=== PATIENT | female | born 1990 | race African-American/Black ===

== ENCOUNTER 2018-01-15 20:21 | Emergency (ER) | payer OTHER ==
[~2018-01-15] VITALS: Ht 160 cm; Wt 56.7 kg
[~2018-01-15 20:21] MED LIST: ACETAMINOPHEN325 M1 PO; CIPRO500 MG PO; CLEOCIN HCL150 MG PO; DIFLUCAN150 MG PO; FLAGYL500 MG PO; GARAMYCIN5 M1 OP; HUMALOG100 UNIT/1; HUMALOG100 UNIT/1 SUBQ; HUMULIN N100 UNIT/1 SUBQ; HUMULINR100 SUBQ; LASIX 20 MG TAB20 MG PO; LEVEMIR SUBQ; LEVEMIR100 UNIT/1 SUBQ; LISINOPRIL-HCT1 EAC1; LISINOPRIL-HCT1 EAC1 PO; LISINOPRIL20 MG PO; LISINOPRIL5 MG PO; NORCO 5-325 TA1 EACH PO; NOVOLOG100 UNIT/1; NOVOLOG100 UNIT/1 SUBQ; ONDANSETRON HCL4 M2 PO; POTASSIUM20 PO; PRAVACHOL20 MG PO; TORADOL 10 MG T10 MG PO; VICODIN 5-5001 EACH PO; ZESTORETIC 20-1 EAC3 PO; ZOFRAN 4 MG ORAL4 M1 DIS
[2018-01-15 21:17] LABS: URINE BILIRUBIN NEGATIVE (Negative); URINE BLOOD 2+ (Negative); URINE CLARITY CLEAR; URINE COLOR YELLOW; URINE GLUCOSE-RANDOM* 1+ (Negative); URINE KETONES NEGATIVE (Negative); URINE LEUKOCYTES NEGATIVE (Negative); URINE NITRITE NEGATIVE (Negative); URINE PROTEIN (DIPSTICK) 2+ (Negative); URINE UROBILINOGEN 0.2 E.U./dl (0.2-1.0)
[2018-01-15 21:25] LABS: ABSOLUTE NEUTROPHILS 5.2 thou/uL (1.4-8.2); BASOPHILS 1.5 % (0.0-2.0); EOSINOPHILS 1.6 % (0.0-3.0); HEMATOCRIT 30.3 % (37.0-47.0); LYMPHOCYTES 26.6 % (24.0-44.0); MCH 28.4 pg (26.0-34.0); MCV 86.3 fL (80.0-100.0); PLATELET COUNT 339 thou/uL (150-400); POLYS 64.3 % (36.0-66.0); RBC 3.51 mil/uL (4.20-5.00); RDW 13.6 % (10.5-14.5); WBC 8.1 thou/uL (4.0-11.0)
[2018-01-15 21:30] LABS: BACTERIA 1-9 Few /HPF (None Seen); CASTS None Seen /LPF (None Seen); CRYSTALS None Seen /LPF (None Seen); SQUAMOUS 0-3 Few /LPF (0-3); URINE RBC 0-2 Rare /HPF (0-2); URINE WBC None Seen /HPF (0-5)
[2018-01-15 21:34] LABS: ANION GAP 10 mmol/L (7-16); BUN 32 mg/dL (7-18); CALCIUM 8.8 mg/dL (8.5-10.1); CHLORIDE 105 mmol/L (98-107); CO2 23 mmol/L (21-32); CREATININE 2.8 mg/dL (0.6-1.0); GLUCOSE 131 mg/dL (74-106); POTASSIUM 3.8 mmol/L (3.5-5.1); SODIUM 138 mmol/L (136-145)
[2018-01-15 21:43] LABS: ALBUMIN 2.5 g/dL (3.4-5.0); MAGNESIUM 2.1 mg/dL (1.8-2.4); SGOT 20 U/L (15-37); SGPT 32 U/L (30-65); TOTAL BILIRUBIN 0.1 mg/dL (<0.1-1.0); TOTAL PROTEIN 7.3 g/dL (6.4-8.2); TROPONIN-I <0.06 ng/mL (<0.06)
[2018-01-16] MEDS ORDERED: BUTALB-APAP-CA1 EACH PO (00:20)
== END 2018-01-16 00:40 | disposition still patient (30) ==
LOC: ER 20:21
PROVIDERS: Emergency Medicine
DX: E11.22 Type 2 diabetes mellitus with diabetic chronic kidney disease (principal); N18.9 Chronic kidney disease, unspecified; R51 Headache; D64.9 Anemia, unspecified; R42 Dizziness and giddiness; R00.0 Tachycardia, unspecified; I12.9 Hypertensive chronic kidney disease with stage 1 through stage 4 chronic kidney disease, or unspecified chronic kidney disease; Z79.4 Long term (current) use of insulin

== ENCOUNTER 2019-07-05 13:04 | Inpatient (IN) | payer OTHER ==
[2019-07-05] VITALS (13 sets, daily range): BP systolic 117–149; BP diastolic 73–98
[~2019-07-05] VITALS: Ht 157.5 cm; Wt 53.5 kg
[~2019-07-05 13:04] MED LIST changes: +BUTALB-APAP-CA1 EACH PO; +COREG6.25 MG PO; +COZAAR 25 MG TA25 M1 PO; +FIRVANQ50 MG/1 ML PO; +NORVASC10 MG PO; +statin PO
[2019-07-05 13:32] LABS: ABSOLUTE NEUTROPHILS 7.8 thou/uL (1.4-8.2); BASOPHILS 0.7 % (0.0-2.0); EOSINOPHILS 0.3 % (0.0-3.0); HEMATOCRIT 35.6 % (37.0-47.0); HEMOGLOBIN 10.9 gm/dL (12.0-15.0); LYMPHOCYTES 4.9 % (24.0-44.0); MCH 31.4 pg (26.0-34.0); MCHC 30.7 g/dL (28.0-37.0); MCV 102.2 fL (80.0-100.0); MONOCYTES 1.5 % (1.0-8.0); PLATELET COUNT 383 thou/uL (150-400); POLYS 92.6 % (36.0-66.0); RBC 3.48 mil/uL (4.20-5.00); RDW 14.3 % (10.5-14.5); WBC 8.4 thou/uL (4.0-11.0)
[2019-07-05 13:33] LABS: URINE BILIRUBIN NEGATIVE (Negative); URINE BLOOD 1+ (Negative); URINE CLARITY CLEAR; URINE COLOR YELLOW; URINE GLUCOSE-RANDOM* 3+ (Negative); URINE KETONES 2+ (Negative); URINE LEUKOCYTES-REFLEX NEGATIVE (Negative); URINE NITRITE-REFLEX NEGATIVE (Negative); URINE PROTEIN (DIPSTICK) 2+ (Negative); URINE UROBILINOGEN 0.2 E.U./dl (0.2-1.0)
[2019-07-05 13:38] LABS: BE(vivo) -19.5 mmol/L (-2 to +3); HCO3 8.9 mmol/L (22.0-26.0); PCO2 VENOUS 29.5 mmHg (41.0-51.0); PO2 VENOUS 50.8 mmHg (35.0-45.0)
[2019-07-05 13:43] LABS: CASTS None Seen /LPF (None Seen); CRYSTALS None Seen /LPF (None Seen); SQUAMOUS 0-3 Few /LPF (0-3)
[2019-07-05 13:44] LABS: BACTERIA-REFLEX 1-9 Few /HPF (None Seen); URINE RBC 0-2 Rare /HPF (0-2); URINE WBC-REFLEX None Seen /HPF (0-5)
[2019-07-05 13:51] LABS: ALBUMIN 2.8 g/dL (3.4-5.0); CALCIUM 6.9 mg/dL (8.5-10.1); CREATININE 7.7 mg/dL (0.6-1.0); MAGNESIUM 3.3 mg/dL (1.8-2.4); PHOSPHORUS 8.4 mg/dL (2.5-4.9); POTASSIUM 5.7 mmol/L (3.5-5.1); TOTAL BILIRUBIN 0.5 mg/dL (<0.1-1.0); TOTAL PROTEIN 7.5 g/dL (6.4-8.2)
[2019-07-05 16:06] LABS: ALBUMIN 2.6 g/dL (3.4-5.0); CALCIUM 6.6 mg/dL (8.5-10.1); CREATININE 7.5 mg/dL (0.6-1.0); PHOSPHORUS 8.2 mg/dL (2.5-4.9); POTASSIUM 5.3 mmol/L (3.5-5.1)
--- NOTE | 2019-07-05 18:13 | NUR ---
DR. WRIGHT CALLED. RE FLUID ORDERS AND GENERAL UPDATE. REPORTED DID NOT GIVE 8 U BOLUS. I TURNED GTT UP TO 15U/HR. STATES THAT WAS OK. DARLIN REPORTED D51/2 NS HANGING AT 250 /HR.
[2019-07-05 18:42] LABS: ABSOLUTE NEUTROPHILS 7.7 thou/uL (1.4-8.2); BASOPHILS 0.5 % (0.0-2.0); HEMATOCRIT 33.9 % (37.0-47.0); HEMOGLOBIN 10.6 gm/dL (12.0-15.0); LYMPHOCYTES 5.6 % (24.0-44.0); MCH 31.6 pg (26.0-34.0); MCHC 31.2 g/dL (28.0-37.0); MCV 101.3 fL (80.0-100.0); MONOCYTES 1.6 % (1.0-8.0); PLATELET COUNT 345 thou/uL (150-400); POLYS 92.3 % (36.0-66.0); RBC 3.34 mil/uL (4.20-5.00); RDW 14.4 % (10.5-14.5); WBC 8.3 thou/uL (4.0-11.0)
--- NOTE | 2019-07-05 19:36 | NUR ---
END OF SHIFT NOTE. PT ADMIT ICU FOR DKA, ENDOCRONOLGIST CALLED FOR ORDERS. .45NS INFUSING AT 250CC/HR. INSULIN GTT TITRATING TO LOWER BLOOD SUGAR 50-100 PER HOUR.
[2019-07-05 21:45] LABS: ALBUMIN 2.4 g/dL (3.4-5.0); CALCIUM 7.2 mg/dL (8.5-10.1); CREATININE 7.5 mg/dL (0.6-1.0); PHOSPHORUS 7.3 mg/dL (2.5-4.9)
[2019-07-05 21:49] LABS: POTASSIUM 4.1 mmol/L (3.5-5.1)
[2019-07-06] VITALS (20 sets, daily range): BP systolic 103–160; BP diastolic 64–105
[2019-07-06 01:58] LABS: ALBUMIN 2.2 g/dL (3.4-5.0); CALCIUM 6.8 mg/dL (8.5-10.1); MAGNESIUM 2.7 mg/dL (1.8-2.4); POTASSIUM 4.7 mmol/L (3.5-5.1)
--- NOTE | 2019-07-06 06:00 | NUR ---
PT AWKAE AND ALERT SLEPT MOST OF NIGHT. 1500 CC U0 THIS SHIFT. DENIES PAIN NOR DISCOMFORT. LUNG CLEAR. REMAINS ON DKA PROTOCAL. INSULIN GTT OFF AT PRESENT. WILL CONT TO MONITOR, SEE INSULIN FLOW SHEET FOR ACCUCHECKS AWAITING TO DRAW AM LAB LAST ANION GAP 16. PROGRESSING TOWARD GOALS.
[2019-07-06 09:05] LABS: ALBUMIN 2.3 g/dL (3.4-5.0); CALCIUM 6.8 mg/dL (8.5-10.1); CREATININE 6.9 mg/dL (0.6-1.0); PHOSPHORUS 6.1 mg/dL (2.5-4.9); POTASSIUM 3.8 mmol/L (3.5-5.1)
--- NOTE | 2019-07-06 10:49 | NUR ---
chart review, cm spoke with pt via phone call. intro to cm and transition of care. pt answered question with yes and no responses to most of conversation with pt via phone call. " live wit mom, independent when feeling ok. dme supplies for DM, no primary care dr. i have diabetic dr davila and kidney dr meyer, they at [facility]. don't need primary dr"/charlise. no concerns or question during. will cont following as needed for dc needs.
[2019-07-06 13:42] LABS: ALBUMIN 2.3 g/dL (3.4-5.0); CALCIUM 7.3 mg/dL (8.5-10.1); CREATININE 6.4 mg/dL (0.6-1.0); PHOSPHORUS 5.2 mg/dL (2.5-4.9); POTASSIUM 3.9 mmol/L (3.5-5.1)
[2019-07-06 17:24] LABS: ALBUMIN 2.1 g/dL (3.4-5.0); CALCIUM 7.2 mg/dL (8.5-10.1); CREATININE 6.4 mg/dL (0.6-1.0); POTASSIUM 4.2 mmol/L (3.5-5.1)
--- NOTE | 2019-07-06 18:37 | NUR ---
ASSUMED CARE PT APPROX 1030. ASSESSMENTS CHARTED.MEDS GIVEN PER MAY. PT ALERT AND ORIENTED.VSS. DENIES PAIN. O2 SATS WNL ON ROOM AIR. DENIES CP/SOB. INSULIN GTT DC'D- PT NOW ON SQ INSULIN. PT TOLERATING DIET. URINE OUTPUT ADEQUATE. SR-ST MONITOR. PT TRANSFER ORDERS FOR 3W. REPORT CALLED TO NURSE. PT LEFT UNIT AT APPROX 1830 WITH ALL BELONGINGS.
[2019-07-07 00:07] LABS: GLYCOHEMOGLOBIN (HGB A1C) 13.9 % (4.8-5.6)
[2019-07-07 04:10] VITALS: BP 136/90
--- NOTE | 2019-07-07 04:49 | NUR ---
Assumed pt care at 1900. Pt transferred by nurse from 3W @2215 via bed. A/OX4, VSS. Denies pain on assessment. Up ad radha,encouraged to call for help as needed. Continent of B&B, voiding adequately. HS snack provided after accucheck 118. SCDs in place, resting w/o distress noted call light/personal items within reach. Will continue to monitor pt.
[2019-07-07 06:02] LABS: ABSOLUTE NEUTROPHILS 2.8 thou/uL (1.4-8.2); BASOPHILS 0.9 % (0.0-2.0); EOSINOPHILS 2.1 % (0.0-3.0); HEMATOCRIT 27.7 % (37.0-47.0); LYMPHOCYTES 37.5 % (24.0-44.0); MCH 31.3 pg (26.0-34.0); MCHC 32.6 g/dL (28.0-37.0); MONOCYTES 3.4 % (1.0-8.0); POLYS 56.1 % (36.0-66.0); RBC 2.89 mil/uL (4.20-5.00); RDW 13.8 % (10.5-14.5)
[2019-07-07 06:03] LABS: PLATELET COUNT 256 thou/uL (150-400)
[2019-07-07 06:13] LABS: ALBUMIN 2.2 g/dL (3.4-5.0); CALCIUM 7.1 mg/dL (8.5-10.1); CREATININE 6.5 mg/dL (0.6-1.0); PHOSPHORUS 5.8 mg/dL (2.5-4.9); POTASSIUM 3.9 mmol/L (3.5-5.1)
[2019-07-07 06:50] LABS: CALCIUM 7.4 mg/dL (8.5-10.1); CREATININE 6.5 mg/dL (0.6-1.0); PHOSPHORUS 5.9 mg/dL (2.5-4.9)
[2019-07-07 07:25] VITALS: BP 149/93
--- NOTE | 2019-07-07 11:17 | HC ---
[facility] [place] [address] CONSULTATION Name: LINNEA BUSH Room #: 440-P ADM IN M.R.#: [id number] Admission: 07/05/19 Attend Phys: Merline Casey MD Discharge: Date of : 91 Report #: [id number] THIS REPORT FOR: cc: FILI - Family physician unknown FILI - Family physician unknown Cheryl Barrera MD ~ CC: FILI unknown Merline Casey DATE OF SERVICE: 07/06/2019 ENDOCRINE CONSULTATION NOTE CONSULTING PHYSICIAN: Dr. Casey. REASON FOR CONSULTATION: DKA, uncontrolled type 1 diabetes mellitus. HISTORY OF PRESENT ILLNESS: This is a 28-year-old female patient whose medical background is remarkable for type 1 diabetes mellitus diagnosed at the age of 5. The patient's course with diabetes has been complicated by chronic kidney disease, end-stage renal disease, whereby she is being planned for an AV fistula placement next month. She is also hypertensive. The patient has been maintained on a Tandem insulin pump utilizing Humalog insulin since November of last year. She is under the management of the Endocrinology Department at [facility]. When questioned about her specific insulin pump settings, the patient was unable to provide accurate answers and noted that she believes she might be using a carb ratio of 15 and sensitivity factor of 15 with a basal rate of 0.6. She vaguely recalls that her most recent hemoglobin A1c was over 12, but does not remember exactly when that was. She suffers end-stage renal disease, but not retinopathy or neuropathy and without a history of heart disease as per her report. The patient is also hypertensive and is maintained on carvedilol and amlodipine. The patient notes that earlier on the day of her admission yesterday, she developed a seizure due to severe hypoglycemia that she believes went as low as 20 mg/dL. Following that, the patient started having issues with uncontrollable high blood sugars and came in to the ER where she was found to have blood sugar over 1000 mg/dL. Subsequently, she was admitted to the ICU for further treatment and was managed with intravenous insulin therapy and intravenous fluids as per [facility]'s protocol. REVIEW OF SYSTEMS: CONSTITUTIONAL: Fatigue, tiredness, but not fever or chills. HEENT: Negative for sore throat, sinus pain, ear drainage. [facility] [address] [place] [address] CONSULTATION Name: LINNEA BUSH Room #: 440-P [facility] IN M.R.#: [id number] Admission: 07/05/19 Attend Phys: Merline Casey MD Discharge: Date of : 91 Report #: [id number] PULMONARY: No major issues with shortness of breath, cough or hemoptysis. CARDIAC: Intermittent palpitations, but not syncope or presyncope or chest pain. GASTROINTESTINAL: Abdominal discomfort, nausea, but no vomiting. NEUROLOGY: Lightheadedness, dizziness, seizure activity in the setting of severe hypoglycemia. PSYCHIATRIC: Negative for delusions, hallucinations. SKIN: Negative for ulceration, rash or other major abnormalities. Otherwise, review of systems noncontributory other than those mentioned in HPI. PAST MEDICAL HISTORY: 1. Type 1 diabetes mellitus as noted above. 2. Chronic kidney disease, end-stage renal disease, being planned for AV fistula next month. 3. Hypertension. OUTPATIENT MEDICATIONS: Include: 1. Humalog insulin via insulin pump. 2. Carvedilol 6.25 mg b.i.d. 3. Amlodipine 10 mg daily. ALLERGIES: The patient has no known drug allergies. FAMILY HISTORY: Noncontributory. SOCIAL HISTORY: The patient is single, does not have children. 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 Denies use of tobacco, alcohol or illicit drugs. PHYSICAL EXAMINATION: GENERAL: Pleasant female patient who is not in apparent pain or distress. VITAL SIGNS: Blood pressure is 133/83 mmHg, heart rate is 102 beats per minute, respirations 12 per minute, temperature 36.7 degrees. PSYCH: The patient is lying in bed comfortably, not in pain or distress. HEENT: Anicteric sclerae. Intact extraocular motions. NECK: Supple, without JVD, carotid bruits or lymphadenopathy. I do not appreciate thyromegaly. CHEST: Clear to auscultation with good air entry bilaterally with few scattered rales. HEART: Regular rate and rhythm without murmurs or gallops. ABDOMEN: Soft, lax. No guarding. Active bowel sounds. EXTREMITIES: Lower extremity exam is negative for ankle edema, skin breaks, ulcerations. Pedal pulses are appreciated. NEUROLOGIC: Awake, alert and oriented to time, place and person. The remainder of her examination is largely nonfocal. PSYCHIATRIC: Pleasant, interactive. Normal mood and affect. [address] [address] CONSULTATION Name: ELEAZARKATHRINEJONATHAN DOMINGUEZ Room #: 440-P [facility] IN M.R.#: [id number] Admission: 07/05/19 Attend Phys: Merline Casey MD Discharge: Date of : 89 Report #: [id number] LABORATORY RESULTS: Blood glucose on arrival was over 1000 and quickly dropped to below 180 mg/dL since then. Sodium 132, potassium 3.8, chloride 99, CO2 16, anion gap 17. On arrival this was at 30. BUN 104, creatinine 6.9, glucose 179. Lipase 102, total bilirubin 0.5, calcium 6.8, phosphorus 6.1, magnesium 2.6, alkaline phosphatase 141, ALT 52, albumin 2.3, eGFR 9. Lactic acid 2.6. White blood count 8.3, hemoglobin 10.6, hematocrit 33.9, platelets 345. Hemoglobin A1c in October 2012 was 18.3. She had 3 values done in 2011, all ranging 13.6 to 16.3. ASSESSMENT AND PLAN: 1. Diabetic ketoacidosis. The patient presented in diabetic ketoacidosis. As reflected by her recorded blood glucose values, metabolic abnormalities and she has done rather well with the instated management with intravenous insulin, intravenous fluid resuscitation. She essentially reversed her issues with hyperglycemia and metabolic abnormalities. The patient will be switched from intravenous insulin to subcutaneous insulin therapy at this point. 2. Type 1 diabetes mellitus. The patient has a historic outlook of severe hyperglycemia and poor control. She has been on insulin pump therapy via Tandem insulin pump for the past several months and does not seem to have achieved better control utilizing this method. She was unable to relate the specifics of her insulin pump settings. I have discussed the need to achieve and maintain adequate glycemic control so as to avoid diabetic complications in the future. Also, I expressed my concern about the outlook of severe hypoglycemia, which the patient says occasionally happens. Based on her insulin needs which are now running at about 1-2 units per hour, I will switch the patient over to a combination of Lantus insulin 15 units daily in addition to Humalog supplemental scale at a low intensity as well as Humalog scheduled insulin meal coverage at 5 units per meal. Blood glucose monitoring will commence a.c. and at bedtime. Also, I will request a hemoglobin A1c to get a more current assessment of her overall level of control. As per my discussion with the patient, I will not attempt to resume insulin pump therapy during this hospitalization given the poor outlook that she has had over the past months and I would likely send her home on a basal bolus insulin regimen and have her followup with her transmission tester at [facility] for further coordination of care and to determine whether she is appropriate to maintain an insulin pump therapy or not and whether her insulin pump settings need to be revised or not. 3. Hypertension. The patient's level of blood pressure control is adequate, she is to continue the same regimen. 4. End-stage renal disease. The patient has end-stage renal disease and is being planned for an AV fistula placement and hemodialysis as of next month. She has chronic Nephrology care at [facility]. I briefly discussed the option of simultaneous kidney pancreas transplant with the patient and advised her to consider this possibility in the future. [address] [address] CONSULTATION Name: ELEAZARLINNEA Room #: 440-P [facility] IN M.R.#: [id number] Admission: 07/05/19 Attend Phys: Merline Casey MD Discharge: Date of : 91 Report #: [id number] I certainly appreciate this consultation by Dr. Casey. <ELECTRONICALLY SIGNED> By: Cheryl Barrera MD 07/07/19 1117 1116 1230 Cheryl Barrera MD /nt
[2019-07-07] MEDS ORDERED: HUMALOG100 UNIT/1 SUBQ (11:45)
[2019-07-07] MEDS ORDERED: SODIUM BICARBO650 M3 PO (11:45)
[2019-07-07] MEDS ORDERED: CALCIUM ACETAT667 MG PO (11:45)
[2019-07-07] MEDS ORDERED: LANTUS SUBQ (11:45)
[2019-07-07 13:34] VITALS: BP 149/93
--- NOTE | 2019-07-07 15:31 | NUR ---
Assumed care of pt at 0700. Pt states she feels better today. Renal ultrasound completed. Up ad radha. Denies pain. Discharging home.
--- NOTE | 2019-07-08 07:11 | HC ---
[facility] [place] [address] CONSULTATION Name: LINNEA BUSH Room #: 440-P [facility] IN M.R.#: [id number] Admission: 07/05/19 Attend Phys: Merline Casey MD Discharge: 07/07/19 Date of : 91 Report #: [id number] THIS REPORT FOR: cc: FILI - Family physician unknown FILI - Family physician unknown Laurie Medellin MD ~ CC: FILI unknown Merline Casey DATE OF SERVICE: 07/06/2019 REASON FOR CONSULTATION: End-stage renal disease. REASON FOR PRESENTATION: Elevated blood sugar. HISTORY OF PRESENT ILLNESS: A 28-year-old who is known to have end-stage renal disease and is followed by [facility] for her chronic kidney, end-stage renal disease. She was supposed to have an AV fistula placed next month to initiate hemodialysis. She has been diabetic since she was 5 years old with all diabetic complications. She presented yesterday because of high blood sugar. The patient has had some GI illness in the last couple of days. She denies chest pain, no shortness of breath. On presentation, she was found to have an elevated creatinine. She was also in hyperkalemia. I was asked to assist with the management of her end-stage renal disease. PAST MEDICAL HISTORY: 1. Long-standing diabetes mellitus with all of its complications including diabetic nephropathy, neuropathy, retinopathy. 2. Hypertension. 3. End-stage renal disease. 4. Hyperlipidemia. MEDICATIONS: 1. Carvedilol. 2. Amlodipine. 3. Levemir. 4. NovoLog insulin. ALLERGIES: None. FAMILY HISTORY: Significant for diabetes mellitus. SOCIAL HISTORY: Denies drug or alcohol abuse. REVIEW OF SYSTEMS: GENERAL: No fever or chills. [facility] [address] [place] [address] CONSULTATION Name: LINNEA BUSH Room #: 440-P [facility] IN .R.#: [id number] Admission: 07/05/19 Attend Phys: Merline Casey MD Discharge: 07/07/19 Date of : 91 Report #: [id number] CARDIOVASCULAR: No chest pain or palpitation. PULMONARY: No cough or hemoptysis. GASTROINTESTINAL: As per the history of present illness. GENITOURINARY: No frequency, no urgency. MUSCULOSKELETAL: Occasional back pain. SKIN: No rash or ulcerations. PHYSICAL EXAMINATION: VITAL SIGNS: Blood pressure was 133/83, pulse rate was 100. Respiratory rate was 12. HEAD AND NECK: No jugular venous distention, no bruit, no thyromegaly. CHEST: Clear to auscultation bilaterally. CARDIOVASCULAR: No rub detected. ABDOMEN: Soft, nontender. EXTREMITIES: Lower extremities, no edema. NEUROLOGICAL: She is alert, oriented with no apparent distress. LABORATORY VALUES: Reviewed. Sodium was 132, potassium was 4.7, BUN was 109, creatinine was 7, calcium of 6.8, phosphorus was 7. Magnesium was 2.7. ASSESSMENT AND PLAN: 1. End-stage renal disease. 2. Uncontrolled diabetes mellitus. 3. Management of her diabetic ketoacidosis as per the primary team. 4. From the renal perspective, she is known to have end-stage renal disease. She is supposed to see a surgeon to place an AV fistula down the road when this COVID virus pandemic resolves. 5. Continue to watch electrolytes, potassium has improved. 6. Monitor volume status. 7. Avoid nephrotoxins. 8. Basic chronic kidney disease workup. <ELECTRONICALLY SIGNED> By: Laurie Medellin MD 07/08/19 0711 0731 0812 Laurie Medellin MD /nt
== END 2019-07-07 15:37 | disposition home or self-care (01) | DRG 637 ==
LOC: ER 13:04 → EROBS 15:58 → ICU 15:58 → 3W 07-06 17:44 → 4S 07-06 23:14
PROVIDERS: Emergency Medicine Emergency Medical Services; Hospitalist; Internal Medicine; ADMIT Internal Medicine
PROC: 5A09357 Assistance with Respiratory Ventilation, Less than 24 Consecutive Hours, Continuous Positive Airway Pressure (ICD-10-PCS; principal; 2019-07-05)
DX: E10.10 Type 1 diabetes mellitus with ketoacidosis without coma (principal); E43 Unspecified severe protein-calorie malnutrition; N18.6 End stage renal disease; N17.9 Acute kidney failure, unspecified; I12.0 Hypertensive chronic kidney disease with stage 5 chronic kidney disease or end stage renal disease; E87.1 Hypo-osmolality and hyponatremia; E86.0 Dehydration; E83.39 Other disorders of phosphorus metabolism; E83.41 Hypermagnesemia; E87.5 Hyperkalemia; E78.00 Pure hypercholesterolemia, unspecified; D63.1 Anemia in chronic kidney disease; E78.5 Hyperlipidemia, unspecified; K52.9 Noninfective gastroenteritis and colitis, unspecified; Z87.440 Personal history of urinary (tract) infections; Z79.899 Other long term (current) drug therapy; Z83.3 Family history of diabetes mellitus; Z87.891 Personal history of nicotine dependence; Z68.21 Body mass index [BMI] 21.0-21.9, adult
CPT/HCPCS: 10078; 10102

== ENCOUNTER 2019-07-19 04:58 | Observation (INO) | payer OTHER ==
[2019-07-19] VITALS (19 sets, daily range): BP systolic 112–173; BP diastolic 71–116
[~2019-07-19] VITALS: Ht 152.4 cm; Wt 51.3 kg
[~2019-07-19 04:58] MED LIST changes: +CALCIUM ACETAT667 MG PO; +LANTUS SUBQ; +SODIUM BICARBO650 M3 PO
[2019-07-19 05:24] LABS: ABSOLUTE NEUTROPHILS 3.7 thou/uL (1.4-8.2); BASOPHILS 0.8 % (0.0-2.0); HEMATOCRIT 29.3 % (37.0-47.0); HEMOGLOBIN 9.7 gm/dL (12.0-15.0); LYMPHOCYTES 20.2 % (24.0-44.0); MCH 31.5 pg (26.0-34.0); MCHC 33.2 g/dL (28.0-37.0); MCV 94.9 fL (80.0-100.0); MONOCYTES 6.3 % (1.0-8.0); PLATELET COUNT 351 thou/uL (150-400); POLYS 70.7 % (36.0-66.0); RBC 3.09 mil/uL (4.20-5.00); RDW 13.5 % (10.5-14.5); WBC 5.2 thou/uL (4.0-11.0)
[2019-07-19 05:36] LABS: CALCIUM 6.2 mg/dL (8.5-10.1); CREATININE 5.9 mg/dL (0.6-1.0); POTASSIUM 3.3 mmol/L (3.5-5.1)
[2019-07-19 05:42] LABS: ALBUMIN 2.7 g/dL (3.4-5.0); TOTAL BILIRUBIN 0.2 mg/dL (<0.1-1.0); TOTAL PROTEIN 7.6 g/dL (6.4-8.2)
[2019-07-19 05:46] LABS: URINE BILIRUBIN NEGATIVE (Negative); URINE BLOOD TRACE (Negative); URINE CLARITY CLEAR; URINE COLOR YELLOW; URINE GLUCOSE-RANDOM* 2+ (Negative); URINE KETONES NEGATIVE (Negative); URINE LEUKOCYTES-REFLEX TRACE (Negative); URINE NITRITE-REFLEX NEGATIVE (Negative); URINE PROTEIN (DIPSTICK) 3+ (Negative); URINE UROBILINOGEN 0.2 E.U./dl (0.2-1.0)
[2019-07-19 06:02] LABS: BACTERIA-REFLEX 1-9 Few /HPF (None Seen); CASTS None Seen /LPF (None Seen); CRYSTALS None Seen /LPF (None Seen); MUCUS None Seen strn/LPF (None Seen); SQUAMOUS 0-3 Few /LPF (0-3); TRANSITIONAL EPITHEL CELL 0-3 Few /LPF (None Seen); URINE RBC 0-2 Rare /HPF (0-2); URINE WBC-REFLEX 6-15 Few /HPF (0-5)
--- NOTE | 2019-07-19 18:37 | NUR ---
RECIEVED PATIENT FROM ER AT 0730. AMBULATED FROM STRECTER TO ICU BED. STEADY GAIT. NO COMPLAINTS OF PAIN, NAUSEA OR DIZZINESS. BS 101. D5 RUNNING AT 50. DR. WATERS CONSULTED.
[2019-07-20] VITALS (7 sets, daily range): BP systolic 141–160; BP diastolic 84–105
[2019-07-20 05:57] LABS: ABSOLUTE NEUTROPHILS 3.3 thou/uL (1.4-8.2); BASOPHILS 0.8 % (0.0-2.0); EOSINOPHILS 1.6 % (0.0-3.0); HEMATOCRIT 27.3 % (37.0-47.0); LYMPHOCYTES 36.1 % (24.0-44.0); MCH 31.7 pg (26.0-34.0); MCHC 32.8 g/dL (28.0-37.0); MCV 96.6 fL (80.0-100.0); MONOCYTES 4.1 % (1.0-8.0); POLYS 57.4 % (36.0-66.0); RBC 2.83 mil/uL (4.20-5.00); RDW 13.5 % (10.5-14.5); WBC 5.8 thou/uL (4.0-11.0)
--- NOTE | 2019-07-20 06:00 | NUR ---
PT HAS SLEPT MOST OF NOCT. REMAINS IN SINUS TACH. DENIES PAIN NOR DISCOMFORT. WILL CONT TO MONITOR
[2019-07-20 06:15] LABS: PLATELET COUNT 276 thou/uL (150-400)
[2019-07-20 06:31] LABS: ALBUMIN 2.4 g/dL (3.4-5.0); CALCIUM 6.2 mg/dL (8.5-10.1); CREATININE 6.6 mg/dL (0.6-1.0); MAGNESIUM 2.9 mg/dL (1.8-2.4); PHOSPHORUS 7.3 mg/dL (2.5-4.9); POTASSIUM 4.4 mmol/L (3.5-5.1); TOTAL BILIRUBIN 0.2 mg/dL (<0.1-1.0); TOTAL PROTEIN 6.8 g/dL (6.4-8.2)
--- NOTE | 2019-07-20 10:33 | HC ---
[facility] [place] [address] CONSULTATION Name: LINNEA BUSH Room #: 245-P ADM IN M.R.#: [id number] Admission: 07/19/19 Attend Phys: Kirby Cobb MD Discharge: Date of : 89 Report #: [id number] THIS REPORT FOR: cc: FILI - Family physician unknown FAM - Family physician unknown Cheryl Barrera MD ~ CC: FILI unknown Kirby Cobb DATE OF SERVICE: 07/19/2019 ENDOCRINE CONSULTATION NOTE CONSULTING PHYSICIAN: Dr. Casey. REASON FOR CONSULTATION: Type 1 diabetes mellitus, hypoglycemia. HISTORY OF PRESENT ILLNESS: This is a 28-year-old female patient whose medical background is significant for type 1 diabetes mellitus diagnosed in her hearing aid consultant. I had seen the patient during a recent admission less than 2 weeks ago for the issue of DKA, which was managed at [facility]'s ICU. Following that episode and the patient's stabilization, she was placed on a regimen of Lantus insulin 15 units daily in addition to Humalog insulin 5 units with meals. This was a transition from her prior continuous insulin therapy via insulin pump as the patient's hemoglobin A1c was over 13% and she described an outlook of sustained severe hyperglycemia well over 400 mg/dL for the weeks preceding that admission. The patient states that she has done well initially following that discharge until 3 days ago when she developed severe hypoglycemic episodes requiring EMS assistance. When that happened, the patient went without Lantus injection both on Saturday and Saturday and took Humalog only once on Saturday at 5 units, but none on Saturday. She notes that her blood sugars earlier on Saturday have run into the 400 mg/dL range, but without further changes she went again to develop severe hypoglycemia, which led her to present to the ER at that point. The patient was resuscitated in the Emergency Department where she was evaluated and was found to have a blood sugar of 221 mg/dL. She was admitted to the ICU for further care and monitoring. The patient denies issues with fever, chills, nausea, vomiting or major changes to her p.o. intake. It is worth noting that the patient's background is significant for end-stage renal disease with plans to prepare for hemodialysis as well as for hypertension. [address] [address] CONSULTATION Name: LINNEA BUSH Room #: 245-P [facility] IN M.R.#: [id number] Admission: 07/19/19 Attend Phys: Kirby Cobb MD Discharge: Date of : 91 Report #: [id number] REVIEW OF SYSTEMS: CONSTITUTIONAL: Fatigue, tiredness and unresponsiveness in the setting of severe hypoglycemia, but not fever or chills. HEENT: Negative for sore throat, sinus pain, ear drainage. PULMONARY: Negative for shortness of breath, cough or hemoptysis. CARDIAC: Negative for chest pain, palpitations, syncope or presyncope. GASTROINTESTINAL: Negative for abdominal pain, major changes in bowel movement frequency, hematemesis, but noted for nausea. NEUROLOGY: Noted for tremors and altered level of consciousness associated with hypoglycemia. Negative for seizure episodes. Negative for severe frequent headaches. UROLOGY: Negative for dysuria, hematuria, or frequency. SKIN: Negative for rash, ulceration or discoloration. Otherwise, review of systems noncontributory other than those mentioned in HPI. PAST MEDICAL HISTORY: 1. Type 1 diabetes mellitus. 2. Hypertension. 3. End-stage renal disease. 4. History of colitis. 5. History of urinary tract infection. OUTPATIENT MEDICATIONS: Include: 1. Lantus insulin 15 units daily. 2. Humalog 5 units t.i.d. a.c. 3. Carvedilol 6.25 mg p.o. b.i.d. 4. Amlodipine 10 mg daily. 5. Sodium bicarbonate 650 mg t.i.d. ALLERGIES: No known drug allergies. FAMILY HISTORY: Noncontributory. SOCIAL HISTORY: The patient denies use of tobacco, alcohol or illicit drugs. PHYSICAL EXAMINATION: GENERAL: Pleasant -Citizen Of [place] female patient who is not in apparent pain or distress. VITAL SIGNS: Blood pressure is 153/105 mmHg, heart rate is 104 beats per minute, respirations 14 per minute, temperature of 36.4 degrees. CONSTITUTIONAL: The patient was sitting up in bed, seems comfortable, not in apparent distress. HEENT: Anicteric sclerae. Intact extraocular motions. NECK: Supple, without JVD, carotid bruits or lymphadenopathy. No thyromegaly. CHEST: Noted for good air entry bilaterally without wheezes or crackles. HEART: Regular rate and rhythm without murmurs or gallops. [address] [address] CONSULTATION Name: ELEAZARKATHRINEJONATHAN DOMINGUEZ Room #: 245-P [facility] IN M.R.#: [id number] Admission: 07/19/19 Attend Phys: Kirby Cobb MD Discharge: Date of : 91 Report #: [id number] ABDOMEN: Soft and lax without tenderness or organomegaly. She has active bowel sounds. EXTREMITIES: Lower extremity exam is negative for ankle edema, skin breaks, ulcerations. Pedal pulses are faint. Sensation to light touch is moderately diminished. NEUROLOGIC: Awake, alert and oriented to time, place and person. The remainder of her examination is nonfocal other than for peripheral sensory deficits. PSYCHIATRIC: Interactive. Normal mood and affect. LABORATORY DATA: On arrival, blood glucose was 89, then 85, 77, 101, and then most recently at 362 mg/dL. Sodium 136, potassium 3.3, chloride 95, CO2 of 29, anion gap 12, BUN 96, creatinine 5.9, AST 51, lipase 102, total bilirubin 0.2, direct bilirubin less than 0.1, calcium 6.2, phosphorus 5.9, magnesium 2.6, ALT 76, total protein 7.6, albumin 2.7, EGFR 10. Lactic acid 2.6. Troponin negative. White blood count 5.2, hemoglobin 9.7, hematocrit 29.3, platelets 351. Cortisol 26.3. Hemoglobin A1c on 07/06/2019 was 13.9%. ASSESSMENT AND PLAN: 1. Type 1 diabetes mellitus, uncontrolled. The patient's background is significant for uncontrolled type 1 diabetes mellitus with an outlook of severe sustained hyperglycemia as per her recorded blood glucose values, reported blood glucose values, as well as her recent hemoglobin A1c of nearly 14%. Also, the patient has had a complicated diabetic course noted for end-stage renal disease that awaits hemodialysis. When the patient was hospitalized recently for DKA, she was placed on a basal bolus regimen and switched off of her insulin pump therapy due to the obvious inefficacy of that approach at least with settings she was utilizing. The regimen of Lantus insulin and Humalog insulin was based off of her IV insulin needs. The patient did well during her hospital stay and initially afterwards until she developed recurrent, severe hypoglycemia with hardly any insulin intake for 48 hours. While her doses will be revised down aggressively, the fact remains that she does need basal bolus coverage as a type 1 diabetic, especially with a background noted above. I agree with starting the patient out cautiously at a dose of Lantus insulin 5 units daily as well as Humalog insulin 3 units with meals and modified low intensity Humalog supplemental scale to start blood glucose values over 200. I suspect that the patient's insulin needs will prove to be higher than this, but would rather start with a cautious approach and raise her insulin intake gradually. Once her insulin needs are defined and stable outlook is achieved, the patient can be considered for insulin pump therapy that would take into account of these insulin needs. 2. Hypoglycemia. Severe intractable and concerning and occurred a second time before this admission despite the lack of insulin intake for 48 hours. [address] [address] CONSULTATION Name: LINNEA BUSH Room #: 245-P [facility] IN .R.#: [id number] Admission: 07/19/19 Attend Phys: Kirby Cobb MD Discharge: Date of : 91 Report #: [id number] checked the patient's random cortisol to rule out the possibility of adrenal insufficiency as a predisposition to hypoglycemia and she did rule out by margin with a random cortisol of 26.3. The other explanation would be ineffective gluconeogenesis in the presence of end-stage renal disease and limited renal gluconeogenesis contribution as well as altered pharmacokinetics of insulin therapy in the presence of such end-stage renal disease. The patient was counseled about these facts and we agreed to have a cautious start to basal bolus insulin as noted above and to maintain monitoring in the ICU of her blood glucose every 2 hours until we ensure stability. Given the patient's significant rebound to a blood sugar of 367 mg/dL, her IV dextrose intake was suspended. Should she develop more hypoglycemia going forward, she will be managed as per the [facility] hypoglycemia protocol. 3. End-stage renal disease. 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 4. Hypertension. The patient's level of blood pressure control is marginal, I will defer active management changes in this regard to the hospital team. I certainly appreciate this consultation by Dr. Casey. <ELECTRONICALLY SIGNED> By: Cheryl Barrera MD 07/20/19 1033 1340 [id number] Cheryl Barrera MD /nt
[2019-07-20] MEDS ORDERED: LANTUS SUBQ (12:49)
[2019-07-20] MEDS ORDERED: HUMALOG100 UNIT/1 SUBQ (12:52)
--- NOTE | 2019-07-20 13:09 | NUR ---
BLOOD SUGARS STABALIZED. WILL BE DISCHARGED ON ADJUSTED DOSE OF INSULIN. VITAL SIGNS STABLE.
== END 2019-07-20 14:13 | disposition home or self-care (01) ==
LOC: ER 04:58 → EROBS 06:14 → ICU 06:14
PROVIDERS: Emergency Medicine; Internal Medicine; ADMIT Internal Medicine
DX: E10.649 Type 1 diabetes mellitus with hypoglycemia without coma (principal); N18.6 End stage renal disease; I12.0 Hypertensive chronic kidney disease with stage 5 chronic kidney disease or end stage renal disease; E10.22 Type 1 diabetes mellitus with diabetic chronic kidney disease; E78.5 Hyperlipidemia, unspecified; D63.8 Anemia in other chronic diseases classified elsewhere; E10.10 Type 1 diabetes mellitus with ketoacidosis without coma; Z99.2 Dependence on renal dialysis; Z79.4 Long term (current) use of insulin
CPT/HCPCS: 10078; 88019

== ENCOUNTER 2020-02-21 21:11 | Inpatient (IN) | payer OTHER ==
[~2020-02-21] VITALS: Ht 160 cm; Wt 55.8 kg
[2020-02-21 21:16] VITALS: BP 155/88
[2020-02-21 22:07] LABS: ABSOLUTE NEUTROPHILS 7.6 thou/uL (1.4-8.2); BASOPHILS 0.2 % (0.0-2.0); EOSINOPHILS 0.4 % (0.0-3.0); HEMATOCRIT 35.8 % (37.0-47.0); HEMOGLOBIN 11.6 gm/dL (12.0-15.0); LYMPHOCYTES 2.4 % (24.0-44.0); MCH 28.7 pg (26.0-34.0); MCHC 32.4 g/dL (28.0-37.0); MCV 88.6 fL (80.0-100.0); MONOCYTES 2.5 % (1.0-8.0); PLATELET COUNT 275 thou/uL (150-400); POLYS 94.5 % (36.0-66.0); RBC 4.04 mil/uL (4.20-5.00); RDW 16.9 % (10.5-14.5); WBC 8.1 thou/uL (4.0-11.0)
[2020-02-21 22:22] LABS: ANION GAP 16 mmol/L (7-16); BUN 27 mg/dL (7-18); CHLORIDE 92 mmol/L (98-107); CO2 23 mmol/L (21-32); CREATININE 4.1 mg/dL (0.6-1.0); GLUCOSE 435 mg/dL (74-106); POTASSIUM 3.1 mmol/L (3.5-5.1); SODIUM 131 mmol/L (136-145)
[2020-02-21 22:26] LABS: ALBUMIN 3.1 g/dL (3.4-5.0); DIRECT BILIRUBIN < 0.1 mg/dL (<0.1-0.2); SGOT 16 U/L (15-37); SGPT 18 U/L (30-65); TOTAL BILIRUBIN 0.4 mg/dL (0.2-1.0); TOTAL PROTEIN 8.7 g/dL (6.4-8.2)
[2020-02-21 22:35] LABS: HCO3 21.9 mmol/L (22.0-26.0); PCO2 VENOUS 34.4 mmHg (41.0-51.0)
[2020-02-22] VITALS: BP 118/87
[2020-02-22 15:39] VITALS: BP 116/76
[2020-02-22 16:30] VITALS: BP 135/74
== END 2020-02-22 16:30 | disposition home or self-care (01) | DRG 871 ==
LOC: ER 21:11 → EROBS 22:53
PROVIDERS: Emergency Medicine; ADMIT Hospitalist; ATTEND Hospitalist
DX: A41.9 Sepsis, unspecified organism (principal); J96.01 Acute respiratory failure with hypoxia; N18.6 End stage renal disease; I12.0 Hypertensive chronic kidney disease with stage 5 chronic kidney disease or end stage renal disease; N18.9 Chronic kidney disease, unspecified; R79.1 Abnormal coagulation profile; E10.65 Type 1 diabetes mellitus with hyperglycemia; E87.70 Fluid overload, unspecified; Z20.828 Contact with and (suspected) exposure to other viral communicable diseases; E10.22 Type 1 diabetes mellitus with diabetic chronic kidney disease; E78.5 Hyperlipidemia, unspecified; Z87.440 Personal history of urinary (tract) infections; Z99.2 Dependence on renal dialysis

== ENCOUNTER 2020-07-14 04:45 | Emergency (ER) | payer OTHER ==
[~2020-07-14] VITALS: Ht 160 cm; Wt 54.4 kg
[2020-07-14 05:13] LABS: ABSOLUTE NEUTROPHILS 4.8 thou/uL (1.4-8.2); BASOPHILS 0.5 % (0.0-2.0); EOSINOPHILS 2.1 % (0.0-3.0); HEMATOCRIT 35.8 % (37.0-47.0); HEMOGLOBIN 11.9 gm/dL (12.0-15.0); LYMPHOCYTES 23.1 % (24.0-44.0); MCH 31.9 pg (26.0-34.0); MCHC 33.2 g/dL (28.0-37.0); MCV 96.2 fL (80.0-100.0); MONOCYTES 7.8 % (1.0-8.0); PLATELET COUNT 294 thou/uL (150-400); POLYS 66.5 % (36.0-66.0); RBC 3.72 mil/uL (4.20-5.00); RDW 17.6 % (10.5-14.5); WBC 7.2 thou/uL (4.0-11.0)
[2020-07-14 05:20] LABS: CALCIUM 7.4 mg/dL (8.5-10.1); CREATININE 7.4 mg/dL (0.6-1.0); POTASSIUM 3.8 mmol/L (3.5-5.1)
[2020-07-14 05:26] LABS: ALBUMIN 3.2 g/dL (3.4-5.0); TOTAL BILIRUBIN 0.3 mg/dL (0.2-1.0); TOTAL PROTEIN 8.1 g/dL (6.4-8.2)
[2020-07-14 06:35] VITALS: BP 106/73
--- NOTE | 2020-07-14 07:11 | EKG ---
[place] [address] [facility] [place] [address] ELECTROCARDIOGRAM REPORT Name: ELEAZARLINNEA Room #: [facility]#: [id number] Admission: 07/14/20 Attend Phys: Discharge: Date of : 89 Report #: [id number] 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 : 1990 Requested By: Dayo Garcia Order Number: [id number] MD: Nam Felder Measurements Intervals Merna Rate: 87 P: 39 WY: 171 QRS: 9 QRSD: 86 T: 51 QT: 401 QTc: 483 Interpretive Statements Sinus rhythm Probable left atrial enlargement Borderline prolonged QT interval Compared to ECG 08/12/2018 10:05:04 Sinus tachycardia no longer present T-wave abnormality no longer present Electronically Signed On 07-14-2020 7:11:19 CDT by Nam Felder [email or web address] <ELECTRONICALLY SIGNED> By: Nam Felder MD, [facility] 07/14/20 0711 0503 050 Nam Felder MD, FACC /EPI
[2020-07-15] MEDS ORDERED: CARVEDILOL25 MG PO (01:38)
[2020-07-15] MEDS ORDERED: NORVASC10 MG PO (01:38)
[2020-07-15] MEDS ORDERED: FERRIC CITRATE210 MG PO (01:39)
[2020-07-15] MEDS ORDERED: FUROSEMIDE 80 M80 M1 PO (01:40)
[2020-07-15] MEDS ORDERED: LANTUS SUBQ (01:41)
[2020-07-15] MEDS ORDERED: APIDRA SOL100 UNIT/1 SUBQ (01:41)
[2020-07-15] MEDS ORDERED: RENAL-VITE TAB0.8 MG PO (01:42)
== END 2020-07-14 06:35 | disposition home or self-care (01) ==
LOC: ER 04:45
PROVIDERS: Emergency Medicine
DX: E10.649 Type 1 diabetes mellitus with hypoglycemia without coma (principal); I12.9 Hypertensive chronic kidney disease with stage 1 through stage 4 chronic kidney disease, or unspecified chronic kidney disease; E10.22 Type 1 diabetes mellitus with diabetic chronic kidney disease; N18.9 Chronic kidney disease, unspecified; Z99.2 Dependence on renal dialysis

== ENCOUNTER 2020-07-15 01:21 | Inpatient (IN) | payer OTHER ==
[2020-07-15] VITALS (8 sets, daily range): BP systolic 101–127; BP diastolic 61–81
[~2020-07-15] VITALS: Ht 160 cm; Wt 56.8 kg
[2020-07-15] MEDS ORDERED: CARVEDILOL25 MG PO (01:38)
[2020-07-15] MEDS ORDERED: NORVASC10 MG PO (01:38)
[2020-07-15] MEDS ORDERED: FERRIC CITRATE210 MG PO (01:39)
[2020-07-15] MEDS ORDERED: FUROSEMIDE 80 M80 M1 PO (01:40)
[2020-07-15] MEDS ORDERED: APIDRA SOL100 UNIT/1 SUBQ (01:41)
[2020-07-15] MEDS ORDERED: LANTUS SUBQ (01:41)
[2020-07-15] MEDS ORDERED: RENAL-VITE TAB0.8 MG PO (01:42)
[2020-07-15 03:12] LABS: ABSOLUTE NEUTROPHILS 7.3 thou/uL (1.4-8.2); BASOPHILS 1.3 % (0.0-2.0); EOSINOPHILS 1.1 % (0.0-3.0); LYMPHOCYTES 13.4 % (24.0-44.0); MCHC 32.5 g/dL (28.0-37.0); MCV 98.4 fL (80.0-100.0); MONOCYTES 4.8 % (1.0-8.0); PLATELET COUNT 268 thou/uL (150-400); POLYS 79.4 % (36.0-66.0); RBC 3.45 mil/uL (4.20-5.00); RDW 17.8 % (10.5-14.5); WBC 9.2 thou/uL (4.0-11.0)
[2020-07-15 03:32] LABS: ALBUMIN 2.9 g/dL (3.4-5.0); CALCIUM 7.8 mg/dL (8.5-10.1); POTASSIUM 4.5 mmol/L (3.5-5.1); TOTAL BILIRUBIN 0.3 mg/dL (0.2-1.0); TOTAL PROTEIN 7.7 g/dL (6.4-8.2)
[2020-07-15 04:10] LABS: CREATININE 5.3 mg/dL (0.6-1.0)
--- NOTE | 2020-07-15 16:49 | NUR ---
PT. ARRIVED AT THE FLOOR CLOSE TO 0800; PT. AOX4; ABLE TO TRANSFER FROM STRETCHER TO BED; EDUCATED ABOUT FALL PRECAUTIONS; EDUCATED ABOUT CALL LIGHT AND BED CONTROLS; ST ON THE MONITOR; ADMISSION PERFORMED; AM MEDICATIONS GIVEN; AT LUNCH PT'S GLUCOSE AT 35; D50 GIVEN; PT. NOTIFIED; ST. "IT IS GOING TO MAKE GO TO [facility]"; EDUCATED REASON OF GIVEN MEDICATION; REASSESSMENT BG 140; PHYSICIAN NOTIFIED; ORDERS ON PLACED; ASKED IF FEELING WHEN LOW BG; ST. "YES"; EDUCATED ABOUT CALLING WHEN NOTICED BG DROPPING, SO BG CAN BE CHECK; ST. UNDERSTANDING; RESTING THROUGH THE AFTERNOON; SR DURING THE AFTERNOON; ASSESSMENT CHARGED; FOLLOWING POC; WILL PASS ON REPORT;
--- NOTE | 2020-07-16 03:22 | NUR ---
SLEPT PART OF SHIFT. UP AD JESSICA IN ROOM. WORKING ON GOALS AND PLAN OF CARE FOR NOC. PROGRESSING SLOWLY TOWARDS DISCHARGE GOALS. DENIES COMPLAINTS OF PAIN OR LOW BLOOD SUGARS. CONTINUE TO ASSES CLOSELY.
[2020-07-16 04:06] LABS: GLYCOHEMOGLOBIN (HGB A1C) 14.5 % (4.8-5.6)
[2020-07-16 04:07] VITALS: BP 130/83
[2020-07-16 04:56] LABS: HEMATOCRIT 31.5 % (37.0-47.0); HEMOGLOBIN 10.4 gm/dL (12.0-15.0); MCH 32.4 pg (26.0-34.0); MCHC 32.9 g/dL (28.0-37.0); MCV 98.5 fL (80.0-100.0); RBC 3.19 mil/uL (4.20-5.00); RDW 17.2 % (10.5-14.5); WBC 7.6 thou/uL (4.0-11.0)
[2020-07-16 05:00] LABS: ALBUMIN 2.6 g/dL (3.4-5.0); CALCIUM 7.9 mg/dL (8.5-10.1); POTASSIUM 4.6 mmol/L (3.5-5.1); TOTAL BILIRUBIN 0.3 mg/dL (0.2-1.0); TOTAL PROTEIN 7.1 g/dL (6.4-8.2)
[2020-07-16 05:03] LABS: CREATININE 6.5 mg/dL (0.6-1.0)
[2020-07-16 07:00] VITALS: BP 132/94
[2020-07-16] MEDS ORDERED: HUMALOG100 UNIT/1 SUBQ (08:06)
[2020-07-16 11:05] VITALS: BP 131/92
[2020-07-16 12:42] VITALS: BP 131/92
--- NOTE | 2020-07-16 12:53 | NUR ---
ASSUMED CARE SHIFT CHANGE. ASSESSMENT CHARTED.MEDS GIVEN .VSS. HD THIS SHIFT 2.5L OFF. MAURICIO WELL. ADLIB IN ROOM. SUGARS STABLE. DC ORDERS. DISCUSSED WITH PT. TELE OFF. IV REMOVED. PT TO LEAVE UNIT WITH ALL BELONGINGS.
== END 2020-07-16 13:20 | disposition home or self-care (01) | DRG 871 ==
LOC: ER 01:21 → EROBS 04:53 → 2N 07:32
PROVIDERS: Emergency Medicine; Nurse Practitioner Family; ADMIT Hospitalist; ATTEND Hospitalist
PROC: 5A1D70Z Performance of Urinary Filtration, Intermittent, Less than 6 Hours Per Day (ICD-10-PCS; principal; 2020-07-16)
DX: A41.9 Sepsis, unspecified organism (principal); N18.6 End stage renal disease; E10.22 Type 1 diabetes mellitus with diabetic chronic kidney disease; E10.65 Type 1 diabetes mellitus with hyperglycemia; E78.5 Hyperlipidemia, unspecified; I12.0 Hypertensive chronic kidney disease with stage 5 chronic kidney disease or end stage renal disease; Z79.899 Other long term (current) drug therapy; Z88.6 Allergy status to analgesic agent; Z79.4 Long term (current) use of insulin
CPT/HCPCS: 10081; 32100